=== PATIENT | male | born 1955 | race Caucasian/White ===

== ENCOUNTER 2017-09-23 13:57 | Emergency (ER) | payer OTHER ==
[~2017-09-23] VITALS: Ht 185.4 cm; Wt 75.7 kg
[2017-09-23 15:06] LABS: Basophils # (auto) 0 uL; Eosinophils # (auto) 0.1 uL; Eosinophils % (auto) 0.9 % (0.0-7.0)
[2017-09-23 15:09] LABS: Basophils % (auto) 0.1 % (0.0-2.0); Hematocrit 25.6 % (41.0-53.0); Hemoglobin 8.3 g/dL (13.5-17.5); Lymphocytes # (auto) 0.8 uL; Lymphocytes % (auto) 10.8 % (10.0-50.0); Mean Corpuscular Hemoglobin 30.9 pg (28.0-32.0); Mean Corpuscular Hgb Conc. 32.6 g/dL (32.0-36.0); Mean Corpuscular Volume 95.1 fL (80.0-100.0); Monocytes # (auto) 0.8 uL; Monocytes % (auto) 10.2 % (0.0-12.0); Neutrophils # (auto) 6.1 uL; Platelet Count (auto) 203 10^3/uL (140-450); White Blood Cell 7.9 10^3/uL (4.4-10.8)
[2017-09-23 15:24] LABS: BUN/Creatinine Ratio 22.2; Potassium 4.8 mmol/L (3.5-5.1)
[2017-09-23 15:25] LABS: Albumin 2.1 g/dL (3.4-5.0); Bilirubin, Total 0.7 mg/dL (0.2-1.0); Total Protein 6.5 g/dL (6.4-8.2)
[2017-09-23 16:21] LABS: Urine Bacteria NONE SEEN /hpf (None Seen); Urine Blood 2+ /uL (Negative); Urine Specific Gravity 1.008 (1.001-1.035); Urine WBC 4 /hpf (0 - 3)
[2017-09-23 17:13] VITALS: BP 126/69
== END 2017-09-23 18:01 | disposition home or self-care (01) ==
LOC: ER 13:57 → EDUNIT# 13:57 → EDBD 13:57 → ER 18:01
DX: R31.9 Hematuria, unspecified (principal); J44.9 Chronic obstructive pulmonary disease, unspecified; E78.5 Hyperlipidemia, unspecified; I11.0 Hypertensive heart disease with heart failure; I50.9 Heart failure, unspecified; Z88.0 Allergy status to penicillin
CPT/HCPCS: 36415; 51702; 80053; 81001; 85025